=== PATIENT | female | born 1960 | race Caucasian/White ===

== ENCOUNTER 2016-12-03 11:28 | Inpatient (IN) | payer OTHER ==
[~2016-12-03] VITALS: Ht 144.8 cm; Wt 67.7 kg
--- NOTE | 2016-12-03 11:41 | NUR ---
PT SITTING ON EDGE OF BED WITH C/O 8/10 MYERS AND 6/10 EPIGASTRIC PAIN X 1 WEEK WITH 1 EPISODE OF N/V TODAY. FAMILY AT BEDSIDE.
--- NOTE | 2016-12-03 11:55 | NUR ---
PT UP TO RESTROOM FOR URINE SAMPLE.
--- NOTE | 2016-12-03 12:13 | NUR ---
PT OFF TO CT SCAN VIA [facility].
[2016-12-03 12:21] LABS: BASOPHIL % 0.6 % (0-2); PLATELET COUNT 352 x10^3mcL (130-400); RED CELL DISTRIBUTION WIDTH 14.4 % (11.5-14.5)
[2016-12-03 12:28] LABS: AMPHETAMINE QUAL UR NONE DETECTED (NEG <=1000)
[2016-12-03 12:33] LABS: CALCIUM 9.2 mg/dL (8.5-10.1); CARBON DIOXIDE 27.9 mmol/L (21-32); CHLORIDE SERUM 101 mmol/L (98-107); CREATININE SERUM 0.6 mg/dL (0.6-1.0); GFR1 > 60 mL/min; GLUCOSE SERUM 115 mg/dL (74-106); POTASSIUM SERUM 3.8 mmol/L (3.5-5.1); SODIUM SERUM 139 mmol/L (136-145)
[2016-12-03 12:37] LABS: ALBUMIN 3.7 g/dL (3.4-5.0); ALKALINE PHOSPHATASE 93 U/L (46-116); ALT/SGPT 26 U/L (14-59); AST/SGOT 23 U/L (15-37); BILIRUBIN TOTAL 0.4 mg/dL (0.20-1.00)
[2016-12-03 12:42] LABS: TOTAL PROTEIN, SERUM 8.3 g/dL (6.4-8.2)
--- NOTE | 2016-12-03 13:46 | NUR ---
PT RESTING SITTING UP IN BED. NO SIGNS OF DISTRESS AT THIS TIME. FAMILY AT BEDSIDE.
[2016-12-03 14:23] LABS: microscopic required? YES; urine erythrocyte TRACE (NEGATIVE)
--- NOTE | 2016-12-03 15:02 | NUR ---
REPORT GIVEN TO
--- NOTE | 2016-12-03 15:15 | NUR ---
PATIENT ARRIVED FROM ER VIA GURNEY, ESCORTED BY RN AND . PATIENT IS ALERT AND O X 4. DENIES HEADACHE AT THIS TIME. PERRAL, BRISK 3MM REACTION. TELE # 6 APPLIED. DENIES CHEST PAIN. ON ROOM AIR, NO DISTRESS NOTED, DENIES SOB. LUNGS CTA. IV TO LFA IN PLACE. SCDS AT THE BEDSIDE. TAUGHT ABOUT PAIN SCALE AND PAIN MANAGEMENT. CALL LIGHT WITH IN REACH. FAMILY AT THE BEDSIDE. WILL CONTINUE TO MONITOR.
[2016-12-03 15:48] VITALS: BP 152/71
--- NOTE | 2016-12-03 18:10 | NUR ---
PATIENT RESTING IN BED WITH EYES CLOSED. ON ROOM AIR, NO DISTRESS NOTED. FAMILY AT THE BEDSIDE.
[2016-12-03 18:21] LABS: T3 TOTAL 1.47 ng/mL
[2016-12-03 18:42] LABS: MAGNESIUM 2.2 mg/dL (1.8-2.4); PHOSPHOROUS 3.9 mg/dL (2.5-4.9)
[2016-12-03 19:07] LABS: FREE T4 1.2 ng/dL (0.76-1.46); FREE THYROXINE INDEX 3.3 ug/dL (1.4-4.5)
--- NOTE | 2016-12-03 19:45 | NUR ---
RECEIVED PATIENT IN BED AWAKE ALERT AND ORIENTED [place] SPEAKING WITH NO SIGN OF DISTRESS NOTED, AT BEDSIDE. TELE#6,NSR ON MONITOR DENIES CHESTPAIN. RESPIRATION EVEN AND NONLABOR WITH CLEAR BS SATTING AT 98% RA. IV TO LFA INTACT AND INFUSING WELL. WILL CONTINUE TO MONITOR. CALL LIGHT WITHIN REACH.
[2016-12-03 20:24] VITALS: BP 138/68
--- NOTE | 2016-12-03 23:59 | NUR ---
SLEEPING THIS TIME BREATHING EASY AND NON LABOR. WILL CONTINUE TO MONITOR.
--- NOTE | 2016-12-04 05:28 | NUR ---
SLEPT AT LONG INTERVALS, DENIES HEADACHE AND NECKPAIN THE ENTIRE SHIFT. ALL NEEDS ATTENDED.
[2016-12-04 05:43] VITALS: BP 104/56
[2016-12-04 06:30] LABS: CALCIUM 8.4 mg/dL (8.5-10.1); CARBON DIOXIDE 27.7 mmol/L (21-32); CHLORIDE SERUM 107 mmol/L (98-107); CREATININE SERUM 0.6 mg/dL (0.6-1.0); GFR1 > 60 mL/min; GLUCOSE SERUM 100 mg/dL (74-106); POTASSIUM SERUM 4.2 mmol/L (3.5-5.1); SODIUM SERUM 142 mmol/L (136-145)
[2016-12-04 06:34] LABS: BASOPHIL % 0.7 % (0-2); PLATELET COUNT 316 x10^3mcL (130-400); RED CELL DISTRIBUTION WIDTH 14.3 % (11.5-14.5)
--- NOTE | 2016-12-04 07:15 | NUR ---
PT SEEN REST ON BED. PT REPORT MILD MYERS, BUT WTIHIN TOLERANCE. NO WEAKNESS, NO FACIAL DROOP NOTED AT THIS TIME. PT BREATHING ON RA, EVEN, UNLABORED. IV SITE PATENT, INTACT. IVF INFUSING WELL.
[2016-12-04 10:04] VITALS: BP 124/72
--- NOTE | 2016-12-04 12:44 | NUR ---
ECHOCARDIOGRAM COMPLETED
[2016-12-04 13:15] VITALS: BP 112/73
[2016-12-04 17:48] VITALS: BP 126/72
--- NOTE | 2016-12-04 18:07 | NUR ---
PT STILL HAVING MILD HEADACHE, NOT REQUEST PAIN MED AT THIS TIME. PT BREATHING ON RA, EVEN,UNLABORED. IV SITE PATENT, INTACT. IVF INFUSING.
--- NOTE | 2016-12-04 19:50 | NUR ---
PT ALERT/ORIENTED X4. PT C/O MILD MYERS. REFUSES PAIN MED AT THIS TIME. PT WILL LET STAFF KNOW WHEN WOULD LIKE PAIN MED. TELE #6, SR, HR; 60. PT ASSESSED; SEE NSG FLOWSHEET. SAFETY REINFORCED; SEE EDUCAT SHEET. WILL CONTINUE TO MONITOR.
[2016-12-04 20:33] VITALS: BP 119/58
--- NOTE | 2016-12-04 21:19 | NUR ---
PT C/O MYERS; 10/05. MEDICATED WITH TYLENOL 650 MG PO PER MD PRN ORDER. WILL CONTINUE TO MONITOR.
--- NOTE | 2016-12-04 22:32 | NUR ---
PT AWAKE. C/O MYERS 08/07. PT WAS MEDICATED WITH TYLENOL 650 MG PO AT 2118. WILL CONTINUE TO MONITOR.
--- NOTE | 2016-12-05 01:27 | NUR ---
PT SLEEPTING. NO DISTRESS NOTED. BREATHING IS EVEN AND UNLABORED. WILL CONTINUE TO MONITOR.
--- NOTE | 2016-12-05 03:51 | NUR ---
PT SLEEPING. NO DISTRESS NOTED. WILL CONTINUE TO MONITOR.
--- NOTE | 2016-12-05 05:11 | NUR ---
PT SLEPT IN LONG INTERVALS THROUGHOUT THE NIGHT. MEDICATED FOR MYERS 1X DURING SHIFT (SEE EMAR). WILL CONTINUE TO MONITOR
[2016-12-05 05:50] VITALS: BP 117/62
[2016-12-05 06:27] LABS: BASOPHIL % 0.8 % (0-2); PLATELET COUNT 319 x10^3mcL (130-400)
[2016-12-05 06:30] LABS: RED CELL DISTRIBUTION WIDTH 14.6 % (11.5-14.5)
[2016-12-05 06:32] LABS: CALCIUM 8.8 mg/dL (8.5-10.1); CARBON DIOXIDE 27.8 mmol/L (21-32); CHLORIDE SERUM 108 mmol/L (98-107); CREATININE SERUM 0.6 mg/dL (0.6-1.0); GFR1 > 60 mL/min; GLUCOSE SERUM 101 mg/dL (74-106); MAGNESIUM 2.2 mg/dL (1.8-2.4); PHOSPHOROUS 3.8 mg/dL (2.5-4.9); POTASSIUM SERUM 4.3 mmol/L (3.5-5.1); SODIUM SERUM 141 mmol/L (136-145)
--- NOTE | 2016-12-05 07:21 | NUR ---
RECIEVIED PATIENT AAOX4, ABLE TO COMMUNICATEA AND FOLLOW COMMANDS, NO DISTRESS NOTED, TELE#[address] AND DENIES CHEST PAIN. PALPABLE PULSES TO BUE/BLE. ON ROOM AIR, DENIES SOB, AND RESPIRAITONS EVEN AND UNLABORED. DENIES N/V/D. VOIDS FREELY WITH BRP AND UP WITH MINIMAL ASSIST. DENIES PAIN. SALINE LOCK TO LFA CDI. BED TO LOWEST POSITION, SIDE RAILS UP X2, CALL LIGHT AND BELONGINGS WITHIN REACH, AND WILL CONTINUE TO MONITOR.
--- NOTE | 2016-12-05 07:23 | NUR ---
ALL PT CARE ENDORSED TO ARIEL SALAZAR
[2016-12-05 09:19] VITALS: BP 117/62
--- NOTE | 2016-12-05 09:22 | NUR ---
PATIENT SITTING UP IN BED AAOX4, NO DISTRESS NOTED, RESPIRAITONS EVEN AND UNLABORED, DENIES PAIN, AND ENDORSED CARE TO FALGUNI SALAZAR.
--- NOTE | 2016-12-05 09:31 | NUR ---
RECEIVED REPORT FROM ARIEL SALAZAR, ASSUMING CARE OVER PT.
[2016-12-05] MEDS ORDERED: METHOCARBAMOL500 MG PO (09:49)
[2016-12-05 09:53] VITALS: BP 130/71
--- NOTE | 2016-12-05 10:19 | NUR ---
PT DENIES SOB, DENIES PAIN, AT BEDSIDE, CALL LIGHT WITHIN REACH, WILL CONTINUE TO MONITOR.
--- NOTE | 2016-12-05 11:07 | NUR ---
PT DENIES SOB, DENIES PAIN, AT BEDSIDE, BS 93 NO COVERAGE NEEDED, CALL LIGHT WITHIN REACH, WILL CONTINUE TO MONITOR.
--- NOTE | 2016-12-05 12:12 | NUR ---
PT DENIES SOB, DENIES PAIN, AT BEDSIDE, CALL LIGHT WITHIN REACH, WILL CONTINUE TO MONITOR.
[2016-12-05] MEDS ORDERED: ATORVASTATIN CA40 M1 PO (13:32)
[2016-12-05] MEDS ORDERED: ASPIR 8181 MG PO (13:32)
--- NOTE | 2016-12-05 13:34 | NUR ---
PT DENIES SOB, DENIES PAIN, AT BEDSIDE, CALL LIGHT WITHIN REACH, WILL CONTINUE TO MONITOR.
[2016-12-05 13:41] VITALS: BP 124/72
[2016-12-05] MEDS ORDERED: LIPI10 PO (13:52)
--- NOTE | 2016-12-05 14:46 | NUR ---
PT DENIES SOB, DENIES PAIN, CALL LIGHT WITHIN REACH, WILL CONTINUE TO MONITOR.
--- NOTE | 2016-12-05 15:32 | NUR ---
PT AND RECEIVED DISCHARGE INSTRUCTIONS, VERBALIZED UNDERSTANDING, IV DC'D CATHETER INTACT, ARMBANDS DC'D, TELE 6 DC'D AND RETURNED TO MINERAL SURVEYING TECHNICIAN, AWARE OF E-PRESCRIPTIONS, PT AWAITING TO WALK DOWN STAFF AWARE.
--- NOTE | 2016-12-05 15:38 | NUR ---
PT ESCORTED TO DISCHARGE OFFICE BY RN.
== END 2016-12-05 15:38 | disposition home or self-care (01) | DRG 103 ==
LOC: ED 11:28 → DU 14:07
PROVIDERS: Emergency Medicine; ADMIT Family Medicine
DX: G44.209 Tension-type headache, unspecified, not intractable (principal); D68.69 Other thrombophilia; E11.65 Type 2 diabetes mellitus with hyperglycemia; Z68.32 Body mass index [BMI] 32.0-32.9, adult; E11.51 Type 2 diabetes mellitus with diabetic peripheral angiopathy without gangrene; F43.9 Reaction to severe stress, unspecified
CPT/HCPCS: 80307; 82962; 83880; 84439; G0480; J2060; J7030; Q0092

== ENCOUNTER 2018-07-26 18:47 | Emergency (ER) | payer OTHER ==
[~2018-07-26] VITALS: Ht 152.4 cm; Wt 58.5 kg
[~2018-07-26 18:47] MED LIST: ASPIR 8181 MG PO; ATORVASTATIN CA40 M1 PO; LIPI10 PO; METHOCARBAMOL500 MG PO
[2018-07-26 19:03] VITALS: BP 119/82; Ht 152.4 cm; Wt 58.5 kg
== END 2018-07-26 22:56 | disposition left against medical advice (07) ==
LOC: ED 18:47
DX: Z53.21 Procedure and treatment not carried out due to patient leaving prior to being seen by health care provider (principal)